=== PATIENT | female | born 1950 | race Caucasian/White ===

== ENCOUNTER → 2017-06-22 | Day surgery (SDC) | payer MEDICARE, OTHER ==
[~2017-06-22] MED LIST: ASPI325T PO; BIOTCAP PO; ESTR1 PO; LACTATED RINGER'S 1000 ML INJ 1,000 ML ONE; LORA1TAB PO; METO50TA PO; MULT-65 PO; ONABOTULINUMTOXINA INJ 100 UNITS/VIAL ONE; PROPOFOL 500 MG/50 ML BTL IV ONE; SODIUM CHLORIDE 0.9% INJ 10 ML ONE; TOVI4TAB PO; VENL75XR PO; ZOLP10TA3 PO
--- NOTE | 2017-06-22 10:47 | GIPROC ---
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 PREP QUALITY: fair PREP TYPE:Other: ESTIMATED BLOOD LOSS: None CONSENT: The patient understands the risks and benefits of the procedure and understands that these risks include, but are not limited to: sedation, allergic reaction, infection, perforation and/or bleeding. Alternative means of evaluation and treatment include, among others: physical exam, x-rays, and/or surgical intervention. The patient elects to proceed with this endoscopic procedure. medical equipment was checked for proper function. Hand hygiene and appropriate measures for infection prevention was taken. After the risks, benefits and alternatives of the procedure were thoroughly explained, Informed consent was verified, confirmed and timeout was successfully executed by the treatment team. A digital exam revealed hemorrhoids The EC-3490Li ([id number]) and EC-3890Li ([id number]) endoscope was introduced through the anus and advanced to the cecum, which was identified by both the appendix and ileocecal valve. The instrument was then slowly withdrawn as the colon was fully examined. COLON FINDINGS: Diverticulosis sigmoid. Retroflexed views revealed internal hemorrhoids and Retroflexed views revealed small internal hemorrhoids The scope was then completely withdrawn from the patient and the procedure terminated. PROCEDURE WITHDRAWAL TIME:6minutes ADVERSE EVENTS: There were no complications. IMPRESSIONS: 1. Diverticulosis sigmoid 2. Retroflexed views revealed internal hemorrhoids 3. Retroflexed views revealed small internal hemorrhoids 4. Revealed hemorrhoids RECOMMENDATIONS: 1. Benefiber 2 tsp daily 2. Probiotics from any [facility] or health food store 3. Yearly rectal exams RECALL: Return 3 years Colonoscopy Fatoumata Cordova MD eSigned: Fatoumata Cordova MD 06/22/2017 10:46 AM cc: Embossograph Operator, [facility] Medel and Blanca Aden M.D.
--- NOTE | 2017-06-22 10:51 | GIPROC ---
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 TOPICAL ANESTHETIC: none CONSENT: The patient understands the risks and benefits of the procedure and understands that these risks include, but are not limited to: sedation, allergic reaction, infection, perforation and/or bleeding. Alternative means of evaluation and treatment include, among others: physical exam, x-rays, and/or surgical intervention. The patient elects to proceed with this endoscopic procedure. medical equipment was checked for proper function. Hand hygiene and appropriate measures for infection prevention was taken. After the risks, benefits and alternatives of the procedure were thoroughly explained, Informed consent was verified, confirmed and timeout was successfully executed by the treatment team. The patient was anesthetized with topical anesthesia and the EC-3490Li ([id number]) endoscope was introduced through the mouth and advanced to the second portion of the duodenum. The instrument was slowly withdrawn as the mucosa was fully examined. Duodenitis second portion-biopsy gastritis antrum-biopsy esophagitis distal esopahgs-biopsy BOTOX injected -100 units-25 units in each quadrant ge junction. Dilation was performed at gastroesophageal junction. DILATOR: SIZE(S): RESISTANCE: HEME: APPEARANCE: Dilator: Savary over guidewire Size(s): 17 COMMENT: Retroflexed views revealed a hiatal hernia ADVERSE EVENTS: There were no complications. IMPRESSIONS: 1. Duodenitis second portion-biopsy gastritis antrum-biopsy esophagitis distal esopahgs-biopsy BOTOX injected -100 units-25 units in each quadrant ge junction 2. Retroflexed views revealed a hiatal hernia RECOMMENDATIONS: 1. Await biopsy results. Biopsy results will not be ready for 7-10 days. If you don't hear from us in two weeks, call our office for biopsy results. 2. Anti-reflux regimen 3. Avoid NSAIDS REPEAT EXAM: EGD pending biopsy results Fatoumata Cordova MD eSigned: Fatoumata Cordova MD 06/22/2017 10:51 AM cc: Griselda Bolaños [facility] Lizy Aden M.D. PATIENT NAME: Nettie Vargas MR#: [id number]
== END | disposition home or self-care (01) ==
LOC: ESDC 07:51
PROVIDERS: ATTEND Internal Medicine Gastroenterology
DX: Z12.11 Encounter for screening for malignant neoplasm of colon (principal); Z80.0 Family history of malignant neoplasm of digestive organs; K21.9 Gastro-esophageal reflux disease without esophagitis; R13.10 Dysphagia, unspecified; K22.4 Dyskinesia of esophagus; K57.90 Diverticulosis of intestine, part unspecified, without perforation or abscess without bleeding; K64.8 Other hemorrhoids; K29.80 Duodenitis without bleeding; K29.70 Gastritis, unspecified, without bleeding; K20.9 Esophagitis, unspecified; K44.9 Diaphragmatic hernia without obstruction or gangrene
CPT/HCPCS: 00740; 00810; 43236; 43239; 45378; 88305; 88312; J0585; J3010; J7120

== ENCOUNTER 2017-07-17 11:30 | Emergency (ER) | payer OTHER, MEDICARE ==
[~2017-07-17 11:30] MED LIST changes: -LACTATED RINGER'S 1000 ML INJ 1,000 ML ONE; -ONABOTULINUMTOXINA INJ 100 UNITS/VIAL ONE; -PROPOFOL 500 MG/50 ML BTL IV ONE; -SODIUM CHLORIDE 0.9% INJ 10 ML ONE
[2017-07-17] MEDS ORDERED: IOHEXOL 350 MG/ML 10 ML VIAL (for RAD DIAG) IVCONTRAST ONE (12:30)
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
[2017-07-17 13:08] LABS: BICARBONATE 26.3 MEQ/L (21.0-32.0); POTASSIUM 3.7 MEQ/L (3.5-5.1)
[2017-07-17 13:10] LABS: AUTOMATED NEUTROPHIL # 3.7 TH/MM3 (1.8-7.7); BASOPHIL % 0.3 % (0.0-2.0); EOSINOPHIL # 0.1 TH/MM3 (0-0.4); EOSINOPHIL % 1.9 % (0.0-4.0); HEMATOCRIT 38.3 % (35.0-46.0); HEMO FLAGS DIFF FINAL; LYMPH % 29.8 % (9.0-44.0); LYMPHOCYTE # 1.8 TH/MM3 (1.0-4.8); MEAN CELL VOLUME 89.9 FL (80.0-100.0); MEAN CORPUSCULAR HEMOGLOBIN 31.1 PG (27.0-34.0); MEAN CORPUSCULAR HGB CONC 34.6 % (32.0-36.0); MONO % 8.9 % (0.0-8.0); NEUT % 59.1 % (16.0-70.0); PLATELET COUNT 244 TH/MM3 (150-450); RED BLOOD COUNT 4.26 MIL/MM3 (4.00-5.30); RED CELL DISTRIBUTION WIDTH 12.9 % (11.6-17.2); WHITE BLOOD COUNT 6.2 TH/MM3 (4.0-11.0)
[2017-07-17] MEDS ORDERED: TOVI8TAB PO (13:16)
[2017-07-17] MEDS ORDERED: ASPI325T PO (13:16)
[2017-07-17] MEDS ORDERED: LORA1TAB12 PO (13:16)
[2017-07-17] MEDS ORDERED: DILT180C36 PO (13:16)
[2017-07-17] MEDS ORDERED: FLEC100T PO (13:16)
[2017-07-17 13:39] LABS: I-STAT POTASSIUM 3.7 MMOL/L (3.5-4.9)
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
[2017-07-17] MEDS ORDERED: NORC5TAB PO (14:05)
[2017-07-17] MEDS ORDERED: CYCL5TAB PO (14:05)
[2017-07-17] MEDS ORDERED: IBUP-232 PO (14:05)
[2017-07-17] MEDS ORDERED: ACETAMINOPHEN/HYDROcodone 325 MG/5 MG TAB PO ONE (14:15)
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
[2017-07-17] MEDS ORDERED: ONDANSETRON HCL 4 MG/2 ML VIAL IV PUSH ONE (15:15)
[2017-07-17] MEDS ORDERED: SODIUM CHLORID 0.9% 500 ML INJ 500 ML IV ONE (15:15)
[2017-07-17] MEDS ORDERED: MORPHINE SULFATE 4 MG/ML INJ IV ONE (15:15)
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
== END 2017-07-17 15:33 | disposition home or self-care (01) ==
LOC: NEPE 11:30
DX: S40.012A Contusion of left shoulder, initial encounter (principal); V43.92XA Unspecified car occupant injured in collision with other type car in traffic accident, initial encounter; Y92.414 Local residential or business street as the place of occurrence of the external cause; R91.1 Solitary pulmonary nodule
CPT/HCPCS: 70450; 71010; 71260; 72125; 72128; 72131; 72170; 73030; 73564; 74177; 76376; 80048; 82435; 82565; 82947; 84132; 84295; 84520; 85025; Q9967; 99285

== ENCOUNTER 2018-10-22 16:53 | Observation (INO) ==
[2018-10-22] MEDS ORDERED: Sod Chloride 0.9% Inj 1,000 ML IV.SIG ONE (17:05)
--- NOTE | 2018-10-22 17:18 | ED ---
HPI General Chief Complaint: Syncope Stated Complaint: Medical Time Seen by Provider: 10/22/18 16:55 Source: patient Mode of arrival: EMS Limitations: no limitations History of Present Illness HPI narrative: 68-year-old female with history of appendectomy, cholecystectomy , cecal volvulus, presents to the emergency room for evaluation of abdominal pain and syncopal episode. Patient reports that she was recently operated on by Dr. 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 Patient reports that she has been doing well and has been having bowel movements daily. Reports that this morning, she was not feeling well, reports that she has been feeling nauseous and has been vomiting. Patient reports that she had to have a bowel movement, she went to the bathroom and had a syncopal episode. Patient reports that she woke up on the floor not sure what happened. Patient reports that she called for her to help her, reports that she ended up vomiting in the sink. Her helped her to her bed as she felt as if she is going to pass out again, reports that she vomited again into a big tub. Reports that now, she is having right lower abdominal pain. Reports that pain feels similar to when she was diagnosed with a cecal volvulus in the past. She is due to follow up with Dr. Carrillo on October 30 for her post op follow up. Related Data Home Medications Medication Instructions Recorded Confirmed diltiazem HCl 180 mg PO DAILY 10/12/18 10/22/18 flecainide 50 mg PO Q12H 10/12/18 10/22/18 venlafaxine [Effexor XR] 75 mg PO DAILY 10/12/18 10/22/18 Previous Rx's Medication Instructions Recorded hydrocodone-acetaminophen 1 tab PO Q4H PRN #18 tab 10/16/18 hydrocodone-acetaminophen 1 tab PO Q4H PRN #18 tab 10/24/18 sulfamethoxazole-trimethoprim 1 tab PO Q12H 7 Days #14 tab 10/24/18 [Bactrim DS] Allergies Allergy/AdvReac Type Severity Reaction Status Date / Time No Known Allergies Allergy Verified 10/12/18 20:04 Review of Systems ROS: all other systems reviewed are negative PMFSH History History Provided By: Patient Social History Social History Substance History: No History of Abuse Second Hand Smoke Exposure: No Smoking Status: Former smoker Tobacco Type: Cigarettes How Often Do You Have a Drink Containing Alcohol: Never Recent Travel in [facility] within the Last 8 Weeks: Yes Recent Out of Country Travel within the Last 8 Weeks: No Exam Narrative Exam Narrative: GENERAL: moderate distress SKIN: Focused skin assessment warm/dry. HEAD: Atraumatic. Normocephalic. EYES: Pupils equal and round. No scleral icterus. No injection or drainage. ENT: No nasal bleeding or discharge. Mucous membranes pink and moist. NECK: Trachea midline. No JVD. CARDIOVASCULAR: Regular rate and rhythm. No murmur appreciated. RESPIRATORY: No accessory muscle use. Clear to auscultation. Breath sounds equal bilaterally. GASTROINTESTINAL: Abdomen soft, mild tenderness to rlq, nondistended. staple are c/d/i - no drainage from incision site- there is mild erythema surrounding incision site. Hepatic and splenic margins not palpable. MUSCULOSKELETAL: No obvious deformities. No clubbing. No cyanosis. No edema. NEUROLOGICAL: Awake and alert. No obvious cranial nerve deficits. Motor grossly within normal limits. Normal speech. PSYCHIATRIC: Appropriate mood and affect; insight and judgment normal. Course Initial Documented Vital Signs Temperature 98.6 F 10/22/18 17:02 Pulse Rate 72 10/22/18 17:02 Respiratory Rate 17 10/22/18 17:02 Blood Pressure 110/61 10/22/18 17:02 Pulse Oximetry 98 10/22/18 17:02 Last Documented Vital Signs Temperature 98.3 F 10/24/18 16:35 Pulse Rate 55 L 10/24/18 16:35 Respiratory Rate 20 10/24/18 16:35 Blood Pressure 126/59 L 10/24/18 16:35 Pulse Oximetry 95 10/24/18 16:35 Sign Out Sign Out Data: Patient Sign Out occurred on 10/22/18 at 20:07. Patient's care was discussed, and care was transferred from Crissy Watts to Hoa Mcbride MD. Sign Out Comment: Patient is a 68 year old female who presents to the ER with c/ o of syncopal episode today with abdominal pain. Patient is s/p abdominal surgery from a cecal volvolus - patient is concerned that she may have another volvolus as she has similar abdominal pain. Patient is pending a ct of her abdomen and pelvis. I do anticipate that patient will be admitted to the hospital. Last updated by Crissy Watts at 10/22/18 19:27 Post-Handoff Eval: The patient's case was checked out to me by Dr. Watts. Please see her initial history and physical. The patient's case was checked out to me at the conclusion of her shift. The patient is pending CT scan of the abdomen and pelvis. The patient presented with history of syncope, nausea vomiting, associated with abdominal pain and status post recent abdominal surgery for a cecal volvulus. During the course of the patient's emergency department visit, the patient was placed on a product craftsman with oximetry and frequent blood pressure monitoring. The patient had IV access obtained and blood work sent for analysis. The patient was initially provided normal saline 1 L IV fluid bolus, Zofran 4 mg IV, morphine 4 mg IV. The patient's diagnostic studies are remarkable for a white count of 11.3 which is decreased from 11.5 on last evaluation on October 15, hemoglobin 14.2, platelets 365 with 79.6 neutrophils, 10 Monocytes, chemistry is remarkable for a GFR of 81, calcium 8.4, alk phos 118, troponin I less than 0.02, albumin 2.8. The patient on evaluation by me has an abdominal for central abdominal tenderness on palpation with a wound with surrounding erythema, warmth, and induration suspicious for an early postoperative cellulitis. The patient was started on IV antibiotic. CT scan of the abdomen and pelvis reveals a small nonorganized fluid collection in the midline anterior abdominal wall at site of recent midline laparotomy without convincing features of abscess at this time. No acute abnormality seen with and within the abdomen or pelvic cavity. Patient is status post recent partial colectomy. The patient's case including history, pertinent physical examination findings, and laboratory studies were discussed with Dr. Mendoza, covering for Dr. Carrillo, and Dr. Meyers, the hospitalist. It was agreed that the patient would be admitted to the hospitalist service. The patient's results were discussed with the patient, including the plan of care. I explained that further testing and/ or monitoring is indicated based on the patient's history, examination, and/ or laboratory findings. Therefore, I recommended admission for additional evaluation. The patient expressed understanding and was agreeable with this plan. The patient was admitted to the hospital in guarded condition and sent to a bed under the care of the [facility] service. Medical Decision Making MDM Narrative Medical decision making narrative: During the course of the patients emergency department visit, the patients history, examination, and differential diagnosis were reviewed with the patient. The patient was placed on a product craftsman with oximetry and frequent blood pressure monitoring. The patient had an IV access obtained and blood work sent for analysis. The patient was initially provided with po and IV contrast. Medical Screen Exam Complete: Yes Emergency Medical Condition: Yes Differential Diagnosis Differential Diagnosis: gastritis, gastroenteritis, sbo, volvulus, arrythmia, acs Medical Records Medical records reviewed: Yes I reviewed the patient's medical records. Lab Data Result diagrams: 10/24/18 05:48 10/24/18 05:48 Lab Results 10/22/18 10/22/18 10/22/18 Range/Units 17:15 17:15 17:15 WBC 11.3 H (4.0-11.0) th/mm3 RBC 4.23 (4.00-5.30) mil/mm3 Hgb 14.2 (11.6-15.3) gm/dL Hct 39.1 (35.0-46.0) % MCV 92.3 (80.0-100.0) fL MCH 33.5 (27.0-34.0) pg MCHC 36.4 H (32.0-36.0) % RDW 13.7 (11.6-17.2) % Plt Count 365 D (150-450) th/mm3 MPV 8.0 (7.0-11.0) fL Prelim Diff (Auto) Slide review pending Neut % (Auto) 79.6 H (16.0-70.0) % Lymph % (Auto) 9.4 (9.0-44.0) % [place] % (Auto) 10.0 H (0.0-8.0) % Eos % (Auto) 0.7 (0.0-4.0) % Baso % (Auto) 0.3 (0.0-2.0) % Neut # (Auto) 9.0 H (1.8-7.7) th/mm3 Lymph # (Auto) 1.1 (1.0-4.8) th/mm3 [place] # (Auto) 1.1 H (0.0-0.9) th/mm3 Eos # (Auto) 0.1 (0.0-0.4) th/mm3 Baso # (Auto) 0.0 (0.0-0.2) th/mm3 WBC Differential . Diff Scan Auto diff confirmed Differential Comment . Platelet Estimate Normal (Normal) Platelet Morphology Normal (Normal) PT 10.2 (9.8-11.6) sec INR 1.0 Ratio APTT 27.0 (23.4-31.7) sec Sodium (136-145) meq/L Potassium (3.5-5.1) meq/L Chloride (98-107) meq/L Carbon Dioxide (21.0-32.0) meq/L Anion Gap (5-15) meq/L BUN (7-18) mg/dL Creatinine (0.50-1.00) mg/dL Estimated GFR (>89) mL/min Random Glucose (74-106) mg/dL Calcium (8.5-10.1) mg/dL Magnesium (1.5-2.5) mg/dL Total Bilirubin (0.2-1.0) mg/dL AST (15-37) U/L ALT (10-53) U/L Alkaline Phosphatase (45-117) U/L Troponin I (0.02-0.05) ng/mL B-Natriuretic Peptide 20 (0-100) pg/mL Total Protein (6.4-8.2) g/dL Albumin (3.4-5.0) g/dL Lipase (73-393) U/L Urine Color (Yellw/Straw) Urine Clarity (Clear) Urine pH (5.0-8.5) Ur Specific [place] (1.002-1.035) Urine Protein (Neg-Trace) mg/dL Urine Glucose (UA) (Negative) mg/dL Urine Ketones (Negative) mg/dL Urine Occult Blood (Negative) Urine Nitrate (Negative) Urine Bilirubin (Negative) Urine Urobilinogen (Less than 2) mg/dL Ur Leukocyte Esterase (Negative) Urine RBC (0-3) /hpf Urine WBC (0-5) /hpf Ur Squamous Epith Cells (0-5) /hpf Ur Transition Epith Cell (None) /hpf Amorphous Sediment (None) /hpf Urine Bacteria (None) /hpf Urine Mucus (Occasional) /lpf Micro UA Comment Ur Microscopic Review Urine Culture Comments 10/22/18 10/22/18 10/22/18 Range/Units 18:50 18:50 21:21 WBC (4.0-11.0) th/mm3 RBC (4.00-5.30) mil/mm3 Hgb (11.6-15.3) gm/dL Hct (35.0-46.0) % MCV (80.0-100.0) fL MCH (27.0-34.0) pg MCHC (32.0-36.0) % RDW (11.6-17.2) % Plt Count (150-450) th/mm3 MPV (7.0-11.0) fL Prelim Diff (Auto) Neut % (Auto) (16.0-70.0) % Lymph % (Auto) (9.0-44.0) % [place] % (Auto) (0.0-8.0) % Eos % (Auto) (0.0-4.0) % Baso % (Auto) (0.0-2.0) % Neut # (Auto) (1.8-7.7) th/mm3 Lymph # (Auto) (1.0-4.8) th/mm3 [place] # (Auto) (0.0-0.9) th/mm3 Eos # (Auto) (0.0-0.4) th/mm3 Baso # (Auto) (0.0-0.2) th/mm3 WBC Differential Diff Scan Differential Comment Platelet Estimate (Normal) Platelet Morphology (Normal) PT (9.8-11.6) sec INR Ratio APTT (23.4-31.7) sec Sodium 140 (136-145) meq/L Potassium 4.1 (3.5-5.1) meq/L Chloride 107 (98-107) meq/L Carbon Dioxide 24.2 (21.0-32.0) meq/L Anion Gap 9 (5-15) meq/L BUN 14 (7-18) mg/dL Creatinine 0.72 (0.50-1.00) mg/dL Estimated GFR 81 L (>89) mL/min Random Glucose 93 (74-106) mg/dL Calcium 8.4 L (8.5-10.1) mg/dL Magnesium 2.1 (1.5-2.5) mg/dL Total Bilirubin 0.3 (0.2-1.0) mg/dL AST 26 (15-37) U/L ALT 39 (10-53) U/L Alkaline Phosphatase 118 H (45-117) U/L Troponin I Less than 0.02 L (0.02-0.05) ng/mL B-Natriuretic Peptide (0-100) pg/mL Total Protein 6.9 (6.4-8.2) g/dL Albumin 2.8 L (3.4-5.0) g/dL Lipase 129 (73-393) U/L Urine Color Yellow (Yellw/Straw) Urine Clarity Cloudy H (Clear) Urine pH 7.0 (5.0-8.5) Ur Specific [place] 1.015 (1.002-1.035) Urine Protein Negative (Neg-Trace) mg/dL Urine Glucose (UA) Negative (Negative) mg/dL Urine Ketones Trace H (Negative) mg/dL Urine Occult Blood Negative (Negative) Urine Nitrate Negative (Negative) Urine Bilirubin Negative (Negative) Urine Urobilinogen Less than 2 (Less than 2) mg/dL Ur Leukocyte Esterase Negative (Negative) Urine RBC 1 (0-3) /hpf Urine WBC 4 (0-5) /hpf Ur Squamous Epith Cells <1 (0-5) /hpf Ur Transition Epith Cell 1 (None) /hpf Amorphous Sediment Occasional H (None) /hpf Urine Bacteria Rare H (None) /hpf Urine Mucus Few H (Occasional) /lpf Micro UA Comment Culture not ind Ur Microscopic Review Not Reportable Urine Culture Comments Culture not ind 10/23/18 10/23/18 10/23/18 Range/Units 01:51 01:51 08:35 WBC 8.0 (4.0-11.0) th/mm3 RBC 3.73 L (4.00-5.30) mil/mm3 Hgb 12.3 (11.6-15.3) gm/dL Hct 34.4 L (35.0-46.0) % MCV 92.1 (80.0-100.0) fL MCH 33.0 (27.0-34.0) pg MCHC 35.9 (32.0-36.0) % RDW 13.3 (11.6-17.2) % Plt Count 278 (150-450) th/mm3 MPV 7.5 (7.0-11.0) fL Prelim Diff (Auto) Neut % (Auto) 67.8 (16.0-70.0) % Lymph % (Auto) 20.1 (9.0-44.0) % [place] % (Auto) 10.4 H (0.0-8.0) % Eos % (Auto) 1.3 (0.0-4.0) % Baso % (Auto) 0.4 (0.0-2.0) % Neut # (Auto) 5.4 (1.8-7.7) th/mm3 Lymph # (Auto) 1.6 (1.0-4.8) th/mm3 [place] # (Auto) 0.8 (0.0-0.9) th/mm3 Eos # (Auto) 0.1 (0.0-0.4) th/mm3 Baso # (Auto) 0.0 (0.0-0.2) th/mm3 WBC Differential . Diff Scan Differential Comment Auto diff final Platelet Estimate (Normal) Platelet Morphology (Normal) PT (9.8-11.6) sec INR Ratio APTT (23.4-31.7) sec Sodium 138 (136-145) meq/L Potassium 3.9 (3.5-5.1) meq/L Chloride 107 (98-107) meq/L Carbon Dioxide 24.8 (21.0-32.0) meq/L Anion Gap 6 (5-15) meq/L BUN 13 (7-18) mg/dL Creatinine 0.68 (0.50-1.00) mg/dL Estimated GFR 86 L (>89) mL/min Random Glucose 91 (74-106) mg/dL Calcium 8.2 L (8.5-10.1) mg/dL Magnesium (1.5-2.5) mg/dL Total Bilirubin 0.4 (0.2-1.0) mg/dL AST 55 H (15-37) U/L ALT 61 H (10-53) U/L Alkaline Phosphatase 161 H (45-117) U/L Troponin I Less than 0.02 L Less than 0.02 L (0.02-0.05) ng/mL B-Natriuretic Peptide (0-100) pg/mL Total Protein 6.5 (6.4-8.2) g/dL Albumin 2.7 L (3.4-5.0) g/dL Lipase (73-393) U/L Urine Color (Yellw/Straw) Urine Clarity (Clear) Urine pH (5.0-8.5) Ur Specific [place] (1.002-1.035) Urine Protein (Neg-Trace) mg/dL Urine Glucose (UA) (Negative) mg/dL Urine Ketones (Negative) mg/dL Urine Occult Blood (Negative) Urine Nitrate (Negative) Urine Bilirubin (Negative) Urine Urobilinogen (Less than 2) mg/dL Ur Leukocyte Esterase (Negative) Urine RBC (0-3) /hpf Urine WBC (0-5) /hpf Ur Squamous Epith Cells (0-5) /hpf Ur Transition Epith Cell (None) /hpf Amorphous Sediment (None) /hpf Urine Bacteria (None) /hpf Urine Mucus (Occasional) /lpf Micro UA Comment Ur Microscopic Review Urine Culture Comments 10/24/18 10/24/18 Range/Units 05:48 05:48 WBC 5.7 (4.0-11.0) th/mm3 RBC 3.62 L (4.00-5.30) mil/mm3 Hgb 11.6 (11.6-15.3) gm/dL Hct 33.7 L (35.0-46.0) % MCV 92.9 (80.0-100.0) fL MCH 32.1 (27.0-34.0) pg MCHC 34.6 (32.0-36.0) % RDW 13.0 (11.6-17.2) % Plt Count 320 (150-450) th/mm3 MPV 7.8 (7.0-11.0) fL Prelim Diff (Auto) Neut % (Auto) 60.1 (16.0-70.0) % Lymph % (Auto) 26.6 (9.0-44.0) % [place] % (Auto) 9.3 H (0.0-8.0) % Eos % (Auto) 3.2 (0.0-4.0) % Baso % (Auto) 0.8 (0.0-2.0) % Neut # (Auto) 3.4 (1.8-7.7) th/mm3 Lymph # (Auto) 1.5 (1.0-4.8) th/mm3 [place] # (Auto) 0.5 (0.0-0.9) th/mm3 Eos # (Auto) 0.2 (0.0-0.4) th/mm3 Baso # (Auto) 0.0 (0.0-0.2) th/mm3 WBC Differential . Diff Scan Differential Comment Auto diff final Platelet Estimate (Normal) Platelet Morphology (Normal) PT (9.8-11.6) sec INR Ratio APTT (23.4-31.7) sec Sodium 141 (136-145) meq/L Potassium 3.8 (3.5-5.1) meq/L Chloride 106 (98-107) meq/L Carbon Dioxide 27.3 (21.0-32.0) meq/L Anion Gap 8 (5-15) meq/L BUN 9 (7-18) mg/dL Creatinine 0.77 (0.50-1.00) mg/dL Estimated GFR 75 L (>89) mL/min Random Glucose 91 (74-106) mg/dL Calcium 8.6 (8.5-10.1) mg/dL Magnesium (1.5-2.5) mg/dL Total Bilirubin 0.4 (0.2-1.0) mg/dL AST 97 H (15-37) U/L ALT 146 H (10-53) U/L Alkaline Phosphatase 210 H (45-117) U/L Troponin I (0.02-0.05) ng/mL B-Natriuretic Peptide (0-100) pg/mL Total Protein 6.4 (6.4-8.2) g/dL Albumin 2.6 L (3.4-5.0) g/dL Lipase (73-393) U/L Urine Color (Yellw/Straw) Urine Clarity (Clear) Urine pH (5.0-8.5) Ur Specific [place] (1.002-1.035) Urine Protein (Neg-Trace) mg/dL Urine Glucose (UA) (Negative) mg/dL Urine Ketones (Negative) mg/dL Urine Occult Blood (Negative) Urine Nitrate (Negative) Urine Bilirubin (Negative) Urine Urobilinogen (Less than 2) mg/dL Ur Leukocyte Esterase (Negative) Urine RBC (0-3) /hpf Urine WBC (0-5) /hpf Ur Squamous Epith Cells (0-5) /hpf Ur Transition Epith Cell (None) /hpf Amorphous Sediment (None) /hpf Urine Bacteria (None) /hpf Urine Mucus (Occasional) /lpf Micro UA Comment Ur Microscopic Review Urine Culture Comments Imaging Data Radiologist's impression: Abdomen/Pelvis CT 10/22/18 17:05 CONCLUSION: 1. Small, nonorganized fluid in the midline anterior abdominal wall at site of recent midline laparotomy without convincing features of abscess at this time. 2. No acute abnormality seen within the abdomen or pelvic cavity. Patient is status post recent right partial colectomy. Head CT 10/22/18 17:05 CONCLUSION: 1. No acute intracranial abnormality demonstrated. 2. Chronic white matter changes. . ECG Data EKG Prior to Arrival: No Attestation: I personally reviewed and interpreted this ECG as follows: Interpretation: EKG at 1733: NSR at 63bpm, qt/qtc: 416/424, no acute st or t wave changes Discharge Plan Discharge Disposition Patient Disposition: 01 Discharge Home Discharge Condition Condition: Stable Discharge Order Discharge Orders: Discharge Order (Routine); Ordered 10/24/18 Ordered By: Yesenia Archer Discharge Details Anticipated Discharge Date: 10/24/18 Diagnosis: Complication, postoperative infection Physicians Team ED Provider: Hoa Mcbride Attending Provider: Mariano Mahmood Other Providers: Pee Carrillo Discharge Interventions Interventions: ED Discharge Assessment Last Done: 10/23/18 00:36 Vital Signs Last Done: 10/22/18 19:56 Status ED Status: Left Department Discharge Information Discharge Date/Time: 10/23/18 00:36
[2018-10-22 17:49] LABS: Prothrombin Time 10.2 sec (9.8-11.6)
[2018-10-22 17:54] LABS: Baso % (Auto) 0.3 % (0.0-2.0); Eos # (Auto) 0.1 th/mm3 (0.0-0.4); Eos % (Auto) 0.7 % (0.0-4.0); Hematocrit 39.1 % (35.0-46.0); Hemoglobin 14.2 gm/dL (11.6-15.3); Lymph # (Auto) 1.1 th/mm3 (1.0-4.8); Lymph % (Auto) 9.4 % (9.0-44.0); Mean Corpuscular Hemoglobin 33.5 pg (27.0-34.0); Mean Corpuscular Volume 92.3 fL (80.0-100.0); Mono # (Auto) 1.1 th/mm3 (0.0-0.9); Neut % (Auto) 79.6 % (16.0-70.0); Platelet Count 365 th/mm3 (150-450); Red Blood Count 4.23 mil/mm3 (4.00-5.30); Red Cell Distribution Width 13.7 % (11.6-17.2); White Blood Count 11.3 th/mm3 (4.0-11.0)
[2018-10-22 17:57] LABS: Mean Corpuscular HGB Conc 36.4 % (32.0-36.0)
[2018-10-22 18:34] LABS: Platelet Estimate Normal (Normal); Platelet Morphology Normal (Normal)
[2018-10-22] MEDS ORDERED: Morphine Inj 4 MG/ML Vial IV.PUSH ONE (18:38)
[2018-10-22] MEDS ORDERED: Diatrizoate Meglum/Diatrizoate Sod Liq 9 ML UDC PO ONE (18:52)
[2018-10-22 19:37] LABS: Albumin 2.8 g/dL (3.4-5.0); Anion Gap 9 meq/L (5-15); Aspartate Aminotransferase 26 U/L (15-37); Blood Urea Nitrogen 14 mg/dL (7-18); Calcium 8.4 mg/dL (8.5-10.1); Carbon Dioxide 24.2 meq/L (21.0-32.0); Chloride 107 meq/L (98-107); Glomerular Filtration Rate 81 mL/min (>89); Glucose,Random 93 mg/dL (74-106); Magnesium 2.1 mg/dL (1.5-2.5); Potassium 4.1 meq/L (3.5-5.1); Sodium 140 meq/L (136-145)
[2018-10-22 19:38] LABS: Alanine Aminotransferase 39 U/L (10-53)
[2018-10-22 19:42] LABS: Alkaline Phosphatase 118 U/L (45-117); Total Protein 6.9 g/dL (6.4-8.2)
--- NOTE | 2018-10-22 21:17 | CT ---
EXAM DATE: 10/22/2018 9:13 PM EST AGE/SEX: 68 years / Female INDICATIONS: Syncopal episode. CLINICAL DATA: This is the patient's initial encounter. Patient reports that signs and symptoms have been present for 1 day and indicates a pain score of 0/10. MEDICAL/SURGICAL HISTORY: Hypertension. Cardiovascular disease. Atrial fibrillation Appendectomy. Cholecystectomy. Colon resection. Spinal fusion RADIATION DOSE: 51.71 CTDI (mGy) COMPARISON: [facility], MR BRAIN W/O CONTRAST, 09/29/2016. [facility], CT BRAIN W/O CONTRAST, 07/17/2017. . TECHNIQUE: CT of the head without contrast. Using automated exposure control and adjustment of the mA and/or kV according to patient size, radiation dose was kept as low as reasonably achievable to ob tain optimal diagnostic quality images. DICOM format image data is available electronically for revi ew and comparison. FINDINGS: Cerebrum: The ventricles are normal for age. No evidence of midline shift, mass lesion, hemorrhage or acute infarction. No extraaxial fluid collections are seen. Chronic low-attenuation seen in the p eriventricular white matter, similar to the prior studies. Posterior Fossa: The cerebellum and brainstem are intact. The 4th ventricle is midline. The cerebe llopontine angle is unremarkable. Extracranial: The visualized portion of the orbits is intact. Skull: The calvaria is intact. No evidence of skull fracture. CONCLUSION: 1. No acute intracranial abnormality demonstrated. 2. Chronic white matter changes. . Electronically signed by: Torey Loza MD 10/22/2018 9:16 PM EST
--- NOTE | 2018-10-22 21:41 | CT ---
EXAM DATE: 10/22/2018 9:25 PM EST AGE/SEX: 68 years / Female INDICATIONS: Redness and swelling at incision site; rule out abscess. CLINICAL DATA: This is the patient's initial encounter. Patient reports that signs and symptoms have been present for 1 day and indicates a pain score of 6/10. MEDICAL/SURGICAL HISTORY: Hypertension. Cardiovascular disease. Appendectomy. Cholecystectomy . Colon resection. Spinal fusion ORAL CONTRAST: Partial prescribed oral contrast ingested. RADIATION DOSE: 8.91 CTDI (mGy) COMPARISON: [facility] [place]/O CONTRAST, 10/13/2018. [facility], CT ABDOMEN & PELVIS W CONT RAST, 07/17/2017. . TECHNIQUE: Multiple contiguous axial images were obtained through the abdomen and pelvis following b olus infusion of 97 ml Omnipaque 350 (iohexol) nonionic water-soluble contrast as a single exam dos e. Partial prescribed oral contrast ingested. Using automated exposure control and adjustment of the mA and/or kV according to patient size, radiation dose was kept as low as reasonably achievable to o btain optimal diagnostic quality images. DICOM format image data is available electronically for rev iew and comparison. FINDINGS: Interim midline laparotomy and partial colonic resection. Nonobstructive bowel gas pattern. No free o r loculated fluid collections are seen within the abdomen or pelvic cavity. No free air. In the anter ior abdominal wall is a minimally organized fluid collection measuring approximately 2.8 x 3.4 cm in greatest transaxial dimension and 12.8 cm craniocaudal. No perceptible wall. No gas bubbles are demon strated. No acute abnormalities are seen of the solid organs. Mild biliary prominence post cholecystectomy is unchanged Trace atelectasis and subcentimeter nodules seen of the lung bases, unchanged. CONCLUSION: 1. Small, nonorganized fluid in the midline anterior abdominal wall at site of recent midline laparo fer without convincing features of abscess at this time. 2. No acute abnormality seen within the abdomen or pelvic cavity. Patient is status post recent righ t partial colectomy. Electronically signed by: Torey Loza MD 10/22/2018 9:39 PM EST
[2018-10-22] MEDS ORDERED: Piperacil/Tazo 3.375 GM Premix 50 ML IV.SIG ONE (21:50)
[2018-10-22 22:13] LABS: Amorphous Sediment,Urine Occasional /hpf; Bacteria,Urine Rare /hpf; Bilirubin,Urine Negative (Negative); Clarity,Urine Cloudy (Clear); Color,Urine Yellow (Yellw/Straw); Glucose,Urine (UA) Negative (Negative); Leukocyte Esterase,Urine Negative (Negative); Mucus,Urine Few /lpf (Occasional); Nitrite,Urine Negative (Negative); Specific Gravity,Urine 1.015 (1.002-1.035); Squamous Epithelial Cell,Urine <1 /hpf (0-5); Transitional Epi Cells,Urine 1 /hpf
[2018-10-22] MEDS ORDERED: Acetaminophen 325 MG Tablet PO PRN (22:26)
[2018-10-22] MEDS ORDERED: Bisacodyl 10 MG Supp RECTAL PRN (22:26)
--- NOTE | 2018-10-22 22:28 | P.HPIM ---
History of Present Illness Primary Care Physician: Carmen Duarte History of Present Illness: This is a 68-year-old female with a PMH of HTN, A. fib and h/o Volvulus s/p Right Colon Resection who was brought to the ER after syncopal event. Pt w/ recent admit 10/13-10/17/18 for c/o abdominal pain, found to have Volvulus and underwent Right Colon Resection on 10/13/18 w/ Dr. Carrillo, states she had been doing well since discharge up until today. Today she noted some redness around surgical site w/ intermittent abdominal cramping, worse after eating, later had syncopal event while on the toilet. Pt states she recalls waking up on the floor of the bathroom. Denies chest pain, dizziness or palpitations prior to event, but did have episode of nausea/vomiting afterwards. On arrival, BP 110/ 61, HR 72, O2 sat 98% on RA, Afebrile. WBC 11.3. INR 1.0. Chemistry essentially unremarkable. Troponin negative. UA negative for UTI. CT Head with no acute findings. CT Abdomen/Pelvis with a small non-organized fluid anterior abdominal wall at site of recent laparotomy, no obvious abscess. Dr. Mendoza consulted by ER physician, findings possibly suggestive of postop seroma. Plan is for admission with possible drainage in the am. - Diagnosis (1) Syncope (2) Afib (3) Cellulitis (4) Seroma after procedure Review of Systems PAST FAMILY HISTORY: Reviewed. No h/o DM or CAD All other systems reviewed negative except as stated in HPI [facility] - History History Provided By: Patient - Medical History Medical History: Medical History (Last Updated 10/22/18 @ 17:15 by Crissy Watts) Bowel obstruction Afib Cecal volvulus Cholecystectomy planned Hypertension - Surgical History Surgical History: Surgical History (Last Reviewed 10/22/18 @ 17:15 by Crissy Watts) History of bowel resection S/P ablation of atrial fibrillation H/O spinal fusion History of appendectomy - Tobacco History Second Hand Smoke Exposure: No Smoking Status: Never smoker - Alcohol History How Often Do You Have a Drink Containing Alcohol: Never - Substance Use History Substance History: No History of Abuse - Travel History Recent Travel in the [place] Within the Last 8 Weeks: Yes Recent Travel Out of the Country Within the Last 8 Weeks: No - Immunization History Tetanus Immunization: <5 Years Medications and Allergies Active Medications: Active Medications Sodium Chloride (Ns Flush) 2 ml IV.FLUSH PRN PRN PRN Reason: FLUSH AFTER USING IV ACCESS Allergies Allergy/AdvReac Type Severity Reaction Status Date / Time No Known Allergies Allergy Verified 10/12/18 20:04 Home Medications Medication Instructions Recorded Confirmed Type diltiazem HCl 180 mg PO DAILY 10/12/18 10/22/18 History flecainide 50 mg PO Q12H 10/12/18 10/22/18 History venlafaxine [Effexor XR] 75 mg PO DAILY 10/12/18 10/22/18 History Exam Vital signs: Vital Signs 10/22/18 17:02 10/22/18 17:19 10/22/18 18:45 Temperature 98.6 F 98.6 F Pulse Rate 72 69 Respiratory Rate 17 20 15 Blood Pressure 110/61 110/61 Pulse Oximetry 98 99 10/22/18 19:56 Temperature Pulse Rate 65 Respiratory Rate 18 Blood Pressure 135/63 Pulse Oximetry 97 Intake & Output 10/22/18 10/22/18 10/23/18 06:59 18:59 06:59 Intake Total 1000 / 1000 Balance 1000 / 1000 Weight 70.307 kg Intake: IV 1000 / 1000 NS Inj 1,000 ML @ Wide Open IV. 1000 / 1000 SIG BOLUS ONE Rx#:[id number] Narrative: PE: GENERAL: Extremely pleasant middle-aged white female in no acute distress. at bedside. SKIN: Focused skin assessment warm and dry. HEENT: PERRLA, EOMI. No scleral icterus or conjunctival pallor. No lid lag or facial droop. CARDIOVASCULAR: Regular rate and rhythm. No obvious murmurs to auscultation. No chest tenderness to palpation. RESPIRATORY: No obvious rhonchi or wheezing. Clear to auscultation. Breath sounds equal bilaterally. GASTROINTESTINAL: Abdomen soft, mildly tender to palpation, +erythema, post-op sutures intact, no obvious drainage. MUSCULOSKELETAL: Extremities without clubbing, cyanosis, or edema. No obvious deformities. NEUROLOGICAL: Awake, alert and oriented x4. No focal neurologic deficits. Moving both upper and lower extremities spontaneously. PSYCHIATRIC: Appropriate mood and affect. Insight and judgment normal. Results - Labs CBC & Chem 7: 10/22/18 17:15 10/22/18 18:50 Labs: Short CBC 10/22/18 Range/Units 17:15 WBC 11.3 H (4.0-11.0) th/mm3 Hgb 14.2 (11.6-15.3) gm/dL Hct 39.1 (35.0-46.0) % Plt Count 365 D (150-450) th/mm3 BMP 10/22/18 18:50 Sodium 140 Potassium 4.1 Chloride 107 Carbon Dioxide 24.2 BUN 14 Creatinine 0.72 Calcium 8.4 L Cardiac Enzymes 10/22/18 Range/Units 18:50 Troponin I Less than 0.02 L (0.02-0.05) ng/mL Liver Function 10/22/18 Range/Units 18:50 Total Bilirubin 0.3 (0.2-1.0) mg/dL AST 26 (15-37) U/L ALT 39 (10-53) U/L Alkaline Phosphatase 118 H (45-117) U/L Albumin 2.8 L (3.4-5.0) g/dL Urine 10/22/18 Range/Units 21:21 Urine Color Yellow (Yellw/Straw) Urine Clarity Cloudy H (Clear) Urine pH 7.0 (5.0-8.5) Ur Specific [place] 1.015 (1.002-1.035) Urine Protein Negative (Neg-Trace) mg/dL Urine Glucose (UA) Negative (Negative) mg/dL - Imaging Impressions Abdomen/Pelvis CT 10/22/18 17:05 CONCLUSION: 1. Small, nonorganized fluid in the midline anterior abdominal wall at site of recent midline laparotomy without convincing features of abscess at this time. 2. No acute abnormality seen within the abdomen or pelvic cavity. Patient is status post recent right partial colectomy. Head CT 10/22/18 17:05 CONCLUSION: 1. No acute intracranial abnormality demonstrated. 2. Chronic white matter changes. . Caprini VTE Risk Assessment Caprini VTE Risk Assessment: No/Low Risk (score <= 1) Caprini Risk Assessment Model: Point Value = 1 Point Value = 2 Point Value = 3 Point Value = 5 Age 41-60 Minor surgery BMI > 25 kg/m2 Swollen legs Varicose veins or History of unexplained or recurrent spontaneous Oral contraceptives or hormone replacement Sepsis (< 1 month) Serious lung disease, including pneumonia (< 1 month) Abnormal pulmonary function Acute myocardial infarction Congestive heart failure (< 1 month) History of inflammatory bowel disease Medical patient at bed rest Age 61-74 Arthroscopic surgery Major open surgery (> 45 min) Laparoscopic surgery (> 45 min) Malignancy Confined to bed (> 72 hours) Immobilizing plaster cast Central venous access Age >= 75 History of VTE Family history of VTE Factor V Leiden Prothrombin [id number] Lupus anticoagulant Anticardiolipin antibodies Elevated serum homocysteine Heparin-induced thrombocytopenia Other congenital or acquired thrombophilia Stroke (< 1 month) Elective arthroplasty Hip, pelvis, or leg fracture Acute spinal cord injury (< 1 month) Prophylaxis Regimen: Total Risk Factor Score Risk Level Prophylaxis Regimen 0-1 Low Early ambulation 2 Moderate Order ONE of the following: *Sequential Compression Device (SCD) *Heparin 5000 units SQ BID 3-4 Higher Order ONE of the following medications: *Heparin 5000 units SQ TID *Enoxaparin/Lovenox 40 mg SQ daily (WT < 150 kg, CrCl > 30 mL/min) *Enoxaparin/Lovenox 30 mg SQ daily (WT < 150 kg, CrCl > 10-29 mL/min) *Enoxaparin/Lovenox 30 mg SQ BID (WT < 150 kg, CrCl > 30 mL/min) AND/OR *Sequential Compression Device (SCD) 5 or more Highest Order ONE of the following medications: *Heparin 5000 units SQ TID (Preferred with Epidurals) *Enoxaparin/Lovenox 40 mg SQ daily (WT < 150 kg, CrCl > 30 mL/min) *Enoxaparin/Lovenox 30 mg SQ daily (WT < 150 kg, CrCl > 10-29 mL/min) *Enoxaparin/Lovenox 30 mg SQ BID (WT < 150 kg, CrCl > 30 mL/min) AND *Sequential Compression Device (SCD) Assessment and Plan - Assessment (1) Syncope Code(s): R55 - Syncope and collapse Status: Acute (2) Afib Code(s): I48.91 - Unspecified atrial fibrillation Status: Acute (3) Cellulitis Code(s): L03.90 - Cellulitis, unspecified Status: Acute (4) Seroma after procedure Status: Acute - Plan A/P: 1. Syncope: likely vasovagal while straining on toilet, no chest pain or dizziness reported. CT Head w/ no acute findings. Initial trop negative, will admit to Observation for further eval, telemetry, check serial cardiac enzymes to eval for possible ischemia, check Echo to eval for valvular abnormality/ cardiomyopathy. 2. A-fib: Chronic, controlled. Resume home Cardizem and Flecainide. 3. Cellulitis: Abdominal wall cellulitis, afebrile, mild leukocytosis, s/p Zosyn in ER, will continue w/ IV Abx. 4. Post-Op Seroma: h/o Volvulus s/p Right Colon Resection 10/13/[address] Carrillo, CT Abd/Pelvis w/ fluid collection at surgical site, no clear abscess identified, Dr. Mendoza consulted by ER physician, findings possibly related to seroma, will eval in am w/ possible bedside drainage. NPO after midnight. Morphine prn. 5. DVT Prophylaxis: SCD/Teds 6. Social work for d/c planning as needed. 7. Case discussed w/ ER physician at length, labs/records/imaging reviewed by me
[2018-10-22] MEDS: Morphine Sulfate Inj 2 MG/ML Vial IV.PUSH PRN (22:56)
[2018-10-22] MEDS: Sod Chloride 0.9% Inj 1,000 ML IV.CONT SCH (22:57)
[2018-10-22] MEDS: Flecainide 100 MG Tablet PO SCH (23:39)
[2018-10-23 02:12] LABS: Baso % (Auto) 0.4 % (0.0-2.0); Eos # (Auto) 0.1 th/mm3 (0.0-0.4); Eos % (Auto) 1.3 % (0.0-4.0); Hematocrit 34.4 % (35.0-46.0); Hemoglobin 12.3 gm/dL (11.6-15.3); Lymph # (Auto) 1.6 th/mm3 (1.0-4.8); Lymph % (Auto) 20.1 % (9.0-44.0); Mean Corpuscular HGB Conc 35.9 % (32.0-36.0); Mean Corpuscular Volume 92.1 fL (80.0-100.0); Mean Platelet Volume 7.5 fL (7.0-11.0); Mono # (Auto) 0.8 th/mm3 (0.0-0.9); Mono % (Auto) 10.4 % (0.0-8.0); Neut # (Auto) 5.4 th/mm3 (1.8-7.7); Neut % (Auto) 67.8 % (16.0-70.0); Platelet Count 278 th/mm3 (150-450); Red Blood Count 3.73 mil/mm3 (4.00-5.30); Red Cell Distribution Width 13.3 % (11.6-17.2)
[2018-10-23 02:23] LABS: Alanine Aminotransferase 61 U/L (10-53); Albumin 2.7 g/dL (3.4-5.0); Alkaline Phosphatase 161 U/L (45-117); Anion Gap 6 meq/L (5-15); Aspartate Aminotransferase 55 U/L (15-37); Blood Urea Nitrogen 13 mg/dL (7-18); Calcium 8.2 mg/dL (8.5-10.1); Carbon Dioxide 24.8 meq/L (21.0-32.0); Chloride 107 meq/L (98-107); Glomerular Filtration Rate 86 mL/min (>89); Glucose,Random 91 mg/dL (74-106); Potassium 3.9 meq/L (3.5-5.1); Sodium 138 meq/L (136-145); Total Protein 6.5 g/dL (6.4-8.2)
[2018-10-23] MEDS: Morphine Sulfate Inj 2 MG/ML Vial IV.PUSH PRN ×5 (03:15→22:02)
[2018-10-23] MEDS: Piperacil/Tazo 4.5 GM Premix 4.5 GM/100 ML BAG IV.SIG SCH ×4 (04:33→21:59)
--- NOTE | 2018-10-23 08:38 | P.PN ---
Subjective Interval history: Follow-up for abdominal pain/nausea/vomiting s/p colon resection, syncopal episode. The patient reports continued diffuse abdominal pain around surgical site with surrounding erythema. Denies fevers but does report some occasional chills. Denies any nausea/vomiting since prior to arrival. Denies any lightheadedness or dizziness. She states she has ambulated to the bathroom without difficulty. Denies any chest pain or shortness of breath. Denies any other medical complaints at this time. Physical Exam Vital signs: Vital Signs 10/22/18 17:02 10/22/18 17:19 10/22/18 18:45 Temperature 98.6 F 98.6 F Pulse Rate 72 69 Respiratory Rate 17 20 15 Blood Pressure 110/61 110/61 Pulse Oximetry 98 99 10/22/18 19:56 10/22/18 22:58 10/23/18 00:06 Temperature Pulse Rate 65 60 Respiratory Rate 18 15 16 Blood Pressure 135/63 113/55 L Pulse Oximetry 97 98 10/23/18 00:47 10/23/18 01:35 10/23/18 03:53 Temperature 98.0 F 98.0 F Pulse Rate 59 L 58 L 60 Respiratory Rate 16 17 Blood Pressure 111/60 115/55 L Pulse Oximetry 96 95 10/23/18 04:40 10/23/18 07:53 10/23/18 08:17 Temperature 98.3 F Pulse Rate 55 L 58 L Respiratory Rate 18 16 Blood Pressure 121/62 Pulse Oximetry 95 Intake & Output 10/22/18 10/23/18 10/23/18 18:59 06:59 18:59 Intake Total 1000 / 1000 150 / 150 Balance 1000 / 1000 150 / 150 Weight 70.307 kg 70.3 kg 70.3 kg Intake: IV 1000 / 1000 150 / 150 Zosyn 3.375 GM Premix 50 ML @ 50 / 50 100 mls/hr IV.SIG ONCE ONE Rx#: [id number] Zosyn 4.5 GM Premix 4.5 gm In 100 / 100 100 ml @ 200 mls/hr IV.SIG Q6H GOGO Rx#:[id number] NS Inj 1,000 ML @ Wide Open IV. 1000 / 1000 SIG BOLUS ONE Rx#:[id number] Other: # Voids 1 Date of Last Bowel Movement 10/23/18 Weight On Admission 70.3 kg Narrative: GENERAL: Well-nourished, well-developed pleasant female patient in NAD. SKIN: Warm and dry. No rash. HEENT: Normocephalic. Atraumatic. Pupils equal and round. Mucous membranes pink and moist. CARDIOVASCULAR: Regular rate and rhythm. No murmur appreciated. RESPIRATORY: No accessory muscle use. Clear to auscultation. Breath sounds equal bilaterally. GASTROINTESTINAL: Abdomen soft, nondistended. Midline abdominal surgical site with ghislaine and surrounding erythema, tender to palpation. Normoactive bowel sounds x4. MUSCULOSKELETAL: No obvious deformities. Extremities without clubbing, cyanosis , or edema. NEUROLOGICAL: Awake and alert. No obvious cranial nerve deficits. Motor grossly within normal limits. Moving all extremities spontaneously. Normal speech. PSYCHIATRIC: Appropriate mood and affect; insight and judgment normal. Results - Labs CBC & Chem 7: 10/23/18 01:51 10/23/18 01:51 Laboratory Results - last 24 hr 10/22/18 10/22/18 10/22/18 17:15 17:15 17:15 WBC 11.3 H RBC 4.23 Hgb 14.2 Hct 39.1 MCV 92.3 MCH 33.5 MCHC 36.4 H RDW 13.7 Plt Count 365 D MPV 8.0 Prelim Diff (Auto) Slide review pending Neut % (Auto) 79.6 H Lymph % (Auto) 9.4 [place] % (Auto) 10.0 H Eos % (Auto) 0.7 Baso % (Auto) 0.3 Neut # (Auto) 9.0 H Lymph # (Auto) 1.1 [place] # (Auto) 1.1 H Eos # (Auto) 0.1 Baso # (Auto) 0.0 WBC Differential . Diff Scan Auto diff confirmed Differential Comment . Platelet Estimate Normal Platelet Morphology Normal PT 10.2 INR 1.0 APTT 27.0 Sodium Potassium Chloride Carbon Dioxide Anion Gap BUN Creatinine Estimated GFR Random Glucose Calcium Magnesium Total Bilirubin AST ALT Alkaline Phosphatase Troponin I B-Natriuretic Peptide 20 Total Protein Albumin Lipase Urine Color Urine Clarity Urine pH Ur Specific [place] Urine Protein Urine Glucose (UA) Urine Ketones Urine Occult Blood Urine Nitrate Urine Bilirubin Urine Urobilinogen Ur Leukocyte Esterase Urine RBC Urine WBC Ur Squamous Epith Cells Ur Transition Epith Cell Amorphous Sediment Urine Bacteria Urine Mucus Micro UA Comment Ur Microscopic Review Urine Culture Comments 11/25/18 11/25/18 11/25/18 18:50 18:50 21:21 WBC RBC Hgb Hct MCV MCH MCHC RDW Plt Count MPV Prelim Diff (Auto) Neut % (Auto) Lymph % (Auto) [place] % (Auto) Eos % (Auto) Baso % (Auto) Neut # (Auto) Lymph # (Auto) [place] # (Auto) Eos # (Auto) Baso # (Auto) WBC Differential Diff Scan Differential Comment Platelet Estimate Platelet Morphology PT INR APTT Sodium 140 Potassium 4.1 Chloride 107 Carbon Dioxide 24.2 Anion Gap 9 BUN 14 Creatinine 0.72 Estimated GFR 81 L Random Glucose 93 Calcium 8.4 L Magnesium 2.1 Total Bilirubin 0.3 AST 26 ALT 39 Alkaline Phosphatase 118 H Troponin I Less than 0.02 L B-Natriuretic Peptide Total Protein 6.9 Albumin 2.8 L Lipase 129 Urine Color Yellow Urine Clarity Cloudy H Urine pH 7.0 Ur Specific [place] 1.015 Urine Protein Negative Urine Glucose (UA) Negative Urine Ketones Trace H Urine Occult Blood Negative Urine Nitrate Negative Urine Bilirubin Negative Urine Urobilinogen Less than 2 Ur Leukocyte Esterase Negative Urine RBC 1 Urine WBC 4 Ur Squamous Epith Cells <1 Ur Transition Epith Cell 1 Amorphous Sediment Occasional H Urine Bacteria Rare H Urine Mucus Few H Micro UA Comment Culture not ind Ur Microscopic Review Not Reportable Urine Culture Comments Culture not ind 10/23/18 10/23/18 01:51 01:51 WBC 8.0 RBC 3.73 L Hgb 12.3 Hct 34.4 L MCV 92.1 MCH 33.0 MCHC 35.9 RDW 13.3 Plt Count 278 MPV 7.5 Prelim Diff (Auto) Neut % (Auto) 67.8 Lymph % (Auto) 20.1 [place] % (Auto) 10.4 H Eos % (Auto) 1.3 Baso % (Auto) 0.4 Neut # (Auto) 5.4 Lymph # (Auto) 1.6 [place] # (Auto) 0.8 Eos # (Auto) 0.1 Baso # (Auto) 0.0 WBC Differential . Diff Scan Differential Comment Auto diff final Platelet Estimate Platelet Morphology PT INR APTT Sodium 138 Potassium 3.9 Chloride 107 Carbon Dioxide 24.8 Anion Gap 6 BUN 13 Creatinine 0.68 Estimated GFR 86 L Random Glucose 91 Calcium 8.2 L Magnesium Total Bilirubin 0.4 AST 55 H ALT 61 H Alkaline Phosphatase 161 H Troponin I Less than 0.02 L B-Natriuretic Peptide Total Protein 6.5 Albumin 2.7 L Lipase Urine Color Urine Clarity Urine pH Ur Specific [place] Urine Protein Urine Glucose (UA) Urine Ketones Urine Occult Blood Urine Nitrate Urine Bilirubin Urine Urobilinogen Ur Leukocyte Esterase Urine RBC Urine WBC Ur Squamous Epith Cells Ur Transition Epith Cell Amorphous Sediment Urine Bacteria Urine Mucus Micro UA Comment Ur Microscopic Review Urine Culture Comments - Imaging Impressions Abdomen/Pelvis CT 10/22/18 17:05 CONCLUSION: 1. Small, nonorganized fluid in the midline anterior abdominal wall at site of recent midline laparotomy without convincing features of abscess at this time. 2. No acute abnormality seen within the abdomen or pelvic cavity. Patient is status post recent right partial colectomy. Head CT 10/22/18 17:05 CONCLUSION: 1. No acute intracranial abnormality demonstrated. 2. Chronic white matter changes. . Assessment and Plan - Assessment (1) Syncope Code(s): R55 - Syncope and collapse Status: Acute (2) Afib Code(s): I48.91 - Unspecified atrial fibrillation Status: Acute (3) Cellulitis Code(s): L03.90 - Cellulitis, unspecified Status: Acute (4) Seroma after procedure Status: Acute - Plan 68-year-old female with a PMH of HTN, A. fib and h/o Volvulus s/p Right Colon Resection who was brought to the ER after syncopal event. Syncope: likely vasovagal while straining on toilet, no chest pain or dizziness reported. -CT Head w/ no acute findings. -Troponins negative x2, EKG without acute ischemic changes -Monitor on telemetry -check Echo to eval for valvular abnormality/cardiomyopathy. -Give IVF hydration -Symptoms improved Post-Op Seroma: h/o Volvulus s/p Right Colon Resection 10/13/[address] Carrillo -CT Abd/Pelvis w/ fluid collection at surgical site, no clear abscess identified -Dr. Mendoza consulted by ER physician, findings possibly related to seroma, possible bedside drainage today. -NPO after midnight. -IV Morphine prn. Cellulitis: Abdominal wall cellulitis, afebrile, mild leukocytosis -s/p Zosyn in ER, will continue w/ IV Abx. A-fib: Chronic, controlled. -Resume home Cardizem and Flecainide. -Monitor on telemetry DVT Prophylaxis: SCD/Teds. Hold chemical prophylaxis with likely upcoming procedure.
[2018-10-23] MEDS: Senna/Docusate Sodium 8.6/50 MG Tablet PO SCH ×2 (08:55→22:03)
[2018-10-23] MEDS: dilTIAZem CD 180 MG Capsule PO SCH (08:56)
[2018-10-23] MEDS: Sod Chloride 0.9% Inj 1,000 ML IV.CONT SCH ×3 (08:56→21:59)
[2018-10-23] MEDS ORDERED: Vancomycin Inj 1,000 MG in Sodium Chlor 0.9% Inj 250 ML IV.SIG ONE (10:00)
[2018-10-23] MEDS: Flecainide 100 MG Tablet PO SCH ×2 (10:35→22:00)
--- NOTE | 2018-10-23 17:56 | P.CONGS ---
[facility] Gen Surgery Consult Note Consult date: 10/22/18 Reason for consult: other (post op cellulitis) Requesting physician: Annabella Meyers Narrative: CONSULTATION NOTE FOR SURGICAL ATTENDING, DR. PEE CARRILLO This is a 68 year old female with a past medical history of hypertension, atrial fibrillation and colon resection for cecal volvulus about 10 days ago. The patient was discharged from the hospital last week and was scheduled to come see Dr. Carrillo the first week of October The patient was doing well at home until Tuesday, she noticed pink around her incision without any drainage. On Tuesday, the redness increased. She had a syncopal episode at home. She reports increased pain at her incision. The patient was brought to the ED. A CT abdomen/pelvis was obtained which show a small, non-organized fluid in the midline anterior abdominal wall. Her WBC is elevated. A General Surgery consultation has been requested. Review of Systems All other systems reviewed negative except as stated in [facility] PMFSH - History History Provided By: Patient - Medical History Medical History: Medical History (Last Reviewed 10/24/18 @ 18:48 by Pee Carrillo MD) Afib Bowel obstruction Cecal volvulus Cholecystectomy planned Hypertension - Surgical History Surgical History: Surgical History (Last Reviewed 10/24/18 @ 18:48 by Pee Carrillo MD) H/O exploratory laparotomy H/O spinal fusion History of appendectomy History of bowel resection S/P ablation of atrial fibrillation - Social History I have reviewed the patient's Social History: Yes - Tobacco History Second Hand Smoke Exposure: No Smoking Status: Former smoker Tobacco Type: Cigarettes - Alcohol History How Often Do You Have a Drink Containing Alcohol: Never - Substance Use History Substance History: No History of Abuse - Travel History Recent Travel in the [place] Within the Last 8 Weeks: Yes Recent Travel Out of the Country Within the Last 8 Weeks: No - Immunization History Tetanus Immunization: <5 Years Medications and Allergies Allergies Allergy/AdvReac Type Severity Reaction Status Date / Time No Known Allergies Allergy Verified 10/12/18 20:04 Home Medications Medication Instructions Recorded Confirmed Type diltiazem HCl 180 mg PO DAILY 10/12/18 10/22/18 History flecainide 50 mg PO Q12H 10/12/18 10/22/18 History venlafaxine [Effexor XR] 75 mg PO DAILY 10/12/18 10/22/18 History Active Medications: Active Medications Acetaminophen (Tylenol) 650 mg PO Q4H PRN PRN Reason: Temp > 100.4 Al Hydroxide/Mg Hydroxide (Milk Of Magnesia Liq) 30 ml PO Q12H PRN PRN Reason: Mild Constipation Bisacodyl (Dulcolax Supp) 10 mg RECTAL DAILY PRN PRN Reason: SEVERE CONSITIPATION Diltiazem HCl (Cardizem Cd 24hr) 180 mg PO DAILY [facility] Last Admin: 10/23/18 08:56 Dose: 180 mg Flecainide Acetate (Tambocor) 50 mg PO Q12H [facility] Last Admin: 10/23/18 10:35 Dose: 50 mg Sodium Chloride (Ns Inj) 1,000 mls @ 100 mls/hr IV.CONT .Q10H [facility] Last Admin: 10/23/18 08:56 Dose: 100 mls/hr Piperacillin/Tazobactam/Dextrose (Zosyn 4.5 Gm Premix) 4.5 gm in 100 mls @ 200 mls/hr IV.SIG Q6H [facility] Last Infusion: 10/23/18 16:33 Dose: Infused Lactulose (Lactulose Liq) 30 ml PO DAILY PRN PRN Reason: SEVERE CONSITIPATION Morphine Sulfate (Morphine Inj) 2 mg IV.PUSH Q4H PRN PRN Reason: PAIN 6-10 Last Admin: 10/23/18 17:32 Dose: 2 mg Ondansetron HCl (Zofran Inj) 4 mg IV.PUSH Q6H PRN PRN Reason: NAUSEA OR VOMITING Senna/Docusate Sodium (Valeria-Colace) 1 tab PO BID [facility] Last Admin: 10/23/18 08:55 Dose: Not Given Sennosides (Senokot) 17.2 mg PO Q12H PRN PRN Reason: Moderate Constipation Sodium Chloride (Ns Flush) 2 ml IV.FLUSH PRN PRN PRN Reason: FLUSH AFTER USING IV ACCESS Exam Vital signs: Vital Signs 10/22/18 18:45 10/22/18 19:56 10/22/18 22:58 Temperature Pulse Rate 65 Respiratory Rate 15 18 15 Blood Pressure 135/63 Pulse Oximetry 97 10/23/18 00:06 10/23/18 00:47 10/23/18 01:35 Temperature 98.0 F Pulse Rate 60 59 L 58 L Respiratory Rate 16 16 Blood Pressure 113/55 L 111/60 Pulse Oximetry 98 96 10/23/18 03:53 10/23/18 04:40 10/23/18 07:53 Temperature 98.0 F Pulse Rate 60 55 L Respiratory Rate 17 18 Blood Pressure 115/55 L Pulse Oximetry 95 10/23/18 08:00 10/23/18 08:17 10/23/18 09:00 Temperature 98.3 F Pulse Rate 60 58 L 56 L Respiratory Rate 16 Blood Pressure 121/62 Pulse Oximetry 95 10/23/18 12:19 10/23/18 12:57 10/23/18 15:53 Temperature 98.0 F 97.9 F Pulse Rate 58 L 64 Respiratory Rate 18 16 16 Blood Pressure 106/52 L 108/57 L Pulse Oximetry 94 L 95 Intake & Output 10/22/18 10/23/18 10/23/18 18:59 06:59 18:59 Intake Total 1000 / 1000 150 / 150 1450 / 1450 Balance 1000 / 1000 150 / 150 1450 / 1450 Weight 70.307 kg 70.3 kg 70.3 kg Intake: IV 1000 / 1000 150 / 150 1450 / 1450 NS Inj 1,000 ML @ 100 mls/hr IV 1000 / 1000 .CONT .Q10H [facility] Rx#:[id number] Zosyn 3.375 GM Premix 50 ML @ 50 / 50 100 mls/hr IV.SIG ONCE ONE Rx#: [id number] Zosyn 4.5 GM Premix 4.5 gm In 100 / 100 200 / 200 100 ml @ 200 mls/hr IV.SIG Q6H [facility] Rx#:[id number] NS Inj 1,000 ML @ Wide Open IV. 1000 / 1000 SIG BOLUS ONE Rx#:[id number] Vancomycin Inj 1,000 MG In NS 250 / 250 Inj 250 ML @ 250 mls/hr IV.SIG ONCE ONE Rx#:[id number] Other: # Voids 1 Date of Last Bowel Movement 10/23/18 10/23/18 Weight On Admission 70.3 kg Narrative: GENERAL: 68 year old female resting in bed in no acute distress. SKIN: Warm and dry. BUE ecchymosis noted. HEAD: Atraumatic. Normocephalic. EYES: Pupils equal and round. No scleral icterus. No injection or drainage. ENT: No nasal bleeding or discharge. Mucous membranes pink and moist. NECK: Trachea midline. CARDIOVASCULAR: Regular rate and rhythm. RESPIRATORY: No accessory muscle use. Clear to auscultation. Breath sounds equal bilaterally. GASTROINTESTINAL: Abdomen soft, nondistended. Midline incision with nahid; erythema. Small palpable fluid collection at inferior portion of incision. MUSCULOSKELETAL: Extremities without clubbing, cyanosis, or edema. No obvious deformities. NEUROLOGICAL: Awake and alert. No obvious cranial nerve deficits. Motor grossly within normal limits. Five out of 5 muscle strength in the arms and legs. Normal speech. PSYCHIATRIC: Appropriate mood and affect; insight and judgment normal. . Results - Labs 10/24/18 05:48 10/24/18 05:48 Laboratory Results - last 24 hr 10/22/18 10/22/18 10/22/18 17:15 17:15 18:50 WBC 11.3 H RBC 4.23 Hgb 14.2 Hct 39.1 MCV 92.3 MCH 33.5 MCHC 36.4 H RDW 13.7 Plt Count 365 D MPV 8.0 Prelim Diff (Auto) Slide review pending Neut % (Auto) 79.6 H Lymph % (Auto) 9.4 [place] % (Auto) 10.0 H Eos % (Auto) 0.7 Baso % (Auto) 0.3 Neut # (Auto) 9.0 H Lymph # (Auto) 1.1 [place] # (Auto) 1.1 H Eos # (Auto) 0.1 Baso # (Auto) 0.0 WBC Differential . Diff Scan Auto diff confirmed Differential Comment . Platelet Estimate Normal Platelet Morphology Normal Sodium 140 Potassium 4.1 Chloride 107 Carbon Dioxide 24.2 Anion Gap 9 BUN 14 Creatinine 0.72 Estimated GFR 81 L Random Glucose 93 Calcium 8.4 L Magnesium 2.1 Total Bilirubin 0.3 AST 26 ALT 39 Alkaline Phosphatase 118 H Troponin I Less than 0.02 L B-Natriuretic Peptide 20 Total Protein 6.9 Albumin 2.8 L Lipase Urine Color Urine Clarity Urine pH Ur Specific [place] Urine Protein Urine Glucose (UA) Urine Ketones Urine Occult Blood Urine Nitrate Urine Bilirubin Urine Urobilinogen Ur Leukocyte Esterase Urine RBC Urine WBC Ur Squamous Epith Cells Ur Transition Epith Cell Amorphous Sediment Urine Bacteria Urine Mucus Micro UA Comment Ur Microscopic Review Urine Culture Comments 10/22/18 10/22/18 10/23/18 18:50 21:21 01:51 WBC 8.0 RBC 3.73 L Hgb 12.3 Hct 34.4 L MCV 92.1 MCH 33.0 MCHC 35.9 RDW 13.3 Plt Count 278 MPV 7.5 Prelim Diff (Auto) Neut % (Auto) 67.8 Lymph % (Auto) 20.1 [place] % (Auto) 10.4 H Eos % (Auto) 1.3 Baso % (Auto) 0.4 Neut # (Auto) 5.4 Lymph # (Auto) 1.6 [place] # (Auto) 0.8 Eos # (Auto) 0.1 Baso # (Auto) 0.0 WBC Differential . Diff Scan Differential Comment Auto diff final Platelet Estimate Platelet Morphology Sodium Potassium Chloride Carbon Dioxide Anion Gap BUN Creatinine Estimated GFR Random Glucose Calcium Magnesium Total Bilirubin AST ALT Alkaline Phosphatase Troponin I B-Natriuretic Peptide Total Protein Albumin Lipase 129 Urine Color Yellow Urine Clarity Cloudy H Urine pH 7.0 Ur Specific [place] 1.015 Urine Protein Negative Urine Glucose (UA) Negative Urine Ketones Trace H Urine Occult Blood Negative Urine Nitrate Negative Urine Bilirubin Negative Urine Urobilinogen Less than 2 Ur Leukocyte Esterase Negative Urine RBC 1 Urine WBC 4 Ur Squamous Epith Cells <1 Ur Transition Epith Cell 1 Amorphous Sediment Occasional H Urine Bacteria Rare H Urine Mucus Few H Micro UA Comment Culture not ind Ur Microscopic Review Not Reportable Urine Culture Comments Culture not ind 10/23/18 10/23/18 01:51 08:35 WBC RBC Hgb Hct MCV MCH MCHC RDW Plt Count MPV Prelim Diff (Auto) Neut % (Auto) Lymph % (Auto) [place] % (Auto) Eos % (Auto) Baso % (Auto) Neut # (Auto) Lymph # (Auto) [place] # (Auto) Eos # (Auto) Baso # (Auto) WBC Differential Diff Scan Differential Comment Platelet Estimate Platelet Morphology Sodium 138 Potassium 3.9 Chloride 107 Carbon Dioxide 24.8 Anion Gap 6 BUN 13 Creatinine 0.68 Estimated GFR 86 L Random Glucose 91 Calcium 8.2 L Magnesium Total Bilirubin 0.4 AST 55 H ALT 61 H Alkaline Phosphatase 161 H Troponin I Less than 0.02 L Less than 0.02 L B-Natriuretic Peptide Total Protein 6.5 Albumin 2.7 L Lipase Urine Color Urine Clarity Urine pH Ur Specific [place] Urine Protein Urine Glucose (UA) Urine Ketones Urine Occult Blood Urine Nitrate Urine Bilirubin Urine Urobilinogen Ur Leukocyte Esterase Urine RBC Urine WBC Ur Squamous Epith Cells Ur Transition Epith Cell Amorphous Sediment Urine Bacteria Urine Mucus Micro UA Comment Ur Microscopic Review Urine Culture Comments - Imaging Imaging: ITS Impressions Abdomen/Pelvis CT 10/22/18 17:05 CONCLUSION: 1. Small, nonorganized fluid in the midline anterior abdominal wall at site of recent midline laparotomy without convincing features of abscess at this time. 2. No acute abnormality seen within the abdomen or pelvic cavity. Patient is status post recent right partial colectomy. Head CT 10/22/18 17:05 CONCLUSION: 1. No acute intracranial abnormality demonstrated. 2. Chronic white matter changes. . CT scan - abdomen: image reviewed Assessment and Plan - Assessment (1) Cellulitis Code(s): L03.90 - Cellulitis, unspecified Status: Acute Plan: 68 year old female s/p right colon resection about 10 days ago; back with cellulitis and subcutaneous abscess -Several nahid removed and drained purulent drainage--- see separate procedure note -Regular diet -Continue Zosyn and Vanco x 1 dose -Will plan to monitor with local wound care and continue antibiotics -Thank you for this consult; We will continue to follow (2) Subcutaneous abscess Code(s): L02.91 - Cutaneous abscess, unspecified Status: Acute - Plan Discussed Condition With: Dr. Gerardo Vargas - Attending Attestation CONSULTATION NOTE FOR SURGICAL ATTENDING, DR. PEE CARRILLO Patient seen Nahid removed from the inferior aspect of the wound to drain the abscess Please see separate procedure note for procedure done in the emergency room to treat this infection Patient felt better after drainage We will continue IV antibiotics I agree with above assessment and plan. The exam, history, and the medical decision-making described in the above note were completed with the assistance of the mid-level provider. I reviewed and agree with the findings presented. I attest that I had a [id number] encounter with the patient on the same day, and personally performed and documented my assessment and findings in the medical record. The following services were provided during this hospital visit: Chart data review, vital sign assessments/reviewing monitor data Review of consultations notes if present. Medication orders/review and/or management Ordering and/or reviewing lab tests Ordering and/or interpreting/reviewing x-rays and/or diagnostic studies Care of the patient and discussion of the patient with the care team Documentation time To help prompt me to consider important information that might be impacting today's encounter and assessment, Information from prior notes written by myself or my colleagues may have been "brought forward/copy and pasted" into today's note.
--- NOTE | 2018-10-23 18:33 | ECHRPT ---
Indication: SYNCOPE CONCLUSIONS The left ventricular systolic function is normal with an estimated ejection fraction in the range of 55-60%. Trace mitral valve regurgitation. There is trace tricuspid valve regurgitation. BP: / HR: Rhythm: Sinus MEASUREMENTS (Male / Female) Normal Values Technical Quality:Fair 2D ECHO LV Diastolic Diameter PLAX 3.7 cm 4.2 - 5.9 / 3.9 - 5.3 cm LV Systolic Diameter PLAX 2.6 cm IVS Diastolic Thickness 1.0 cm 0.6 - 1.0 / 0.6 - 0.9 cm LVPW Diastolic Thickness 1.0 cm 0.6 - 1.0 / 0.6 - 0.9 cm LV Relative Wall Thickness 0.5 LVOT Diameter 1.9 cm LV Ejection Fraction MOD 4C 60.4 % LV Ejection Fraction 4C AL 61.1 % M-MODE Aortic Root Diameter MM 2.0 cm LA Systolic Diameter MM 3.9 cm LA Ao Ratio MM 2.0 AV Cusp Separation MM 1.7 cm DOPPLER AV Peak Velocity 145.0 cm/s AV Peak Gradient 8.4 mmHg AI Peak Velocity 200.0 cm/s AI Peak Gradient 16.0 mmHg AI Pressure Half Time 2948.0 ms LVOT Peak Velocity 87.4 cm/s LVOT Peak Gradient 3.1 mmHg AV Area Cont Eq pk 1.7 cm MV Area PHT 3.9 cm Mitral E Point Velocity 70.6 cm/s Mitral A Point Velocity 70.1 cm/s Mitral E to A Ratio 1.0 LV E' Lateral Velocity 7.0 cm/s Mitral E to LV E' Lateral Ratio 10.1 LV E' Septal Velocity 9.1 cm/s Mitral E to LV E' Septal Ratio 7.8 TR Peak Velocity 209.0 cm/s TR Peak Gradient 17.5 mmHg Right Atrial Pressure 10.0 mmHg Pulmonary Artery Systolic Pressu 27.5 mmHg Right Ventricular Systolic Press 27.5 mmHg PV Peak Velocity 73.3 cm/s PV Peak Gradient 2.1 mmHg FINDINGS LEFT VENTRICLE The left ventricular systolic function is normal with an estimated ejection fraction in the range of 55-60%. Normal left ventricular size. Wall thickness is normal. No regional wall motion abnormalities are present. RIGHT VENTRICLE Normal right ventricular size and systolic function. LEFT ATRIUM The left atrial size is mildly dilated. RIGHT ATRIUM The right atrial size is normal. ATRIAL SEPTUM Normal atrial septal thickness without atrial level shunting by limited color doppler interrogation. AORTA The aortic root and proximal ascending aorta are normal in size on limited imaging. MITRAL VALVE Structurally normal mitral valve. Trace mitral valve regurgitation. No mitral valve stenosis. AORTIC VALVE Trileaflet aortic valve. No aortic valve stenosis or regurgitation. TRICUSPID VALVE Structurally normal tricuspid valve. There is trace tricuspid valve regurgitation. The estimated pulmonary arterial pressure is 27.5 mmHg. PULMONARY VALVE No pulmonary valve regurgitation or stenosis. VESSELS The inferior vena cava is normal in size. PERICARDIUM No pericardial effusion. Carl Guzman DO (Electronically Signed) Final Date:23 October 2018 18:33
[2018-10-23] MEDS ORDERED: Zolpidem Tartrate 5 MG Tablet PO PRN (18:50)
[2018-10-24] MEDS: Piperacil/Tazo 4.5 GM Premix 4.5 GM/100 ML BAG IV.SIG SCH ×2 (05:01→11:46)
--- NOTE | 2018-10-24 06:51 | ECG ---
Date Performed: 10/22/2018 Time Performed: 17:33:58 PTAGE: 68 years EKG: Sinus rhythm NORMAL ECG PREVIOUS TRACING : 10/12/2018 23.54 Since the previous tracing, no significant change noted DOCTOR: Reid Ford Interpretating Date/Time 10/24/2018 06:48:31
[2018-10-24] MEDS: Sod Chloride 0.9% Inj 1,000 ML IV.CONT SCH ×2 (07:13→08:53)
[2018-10-24 08:13] LABS: Baso % (Auto) 0.8 % (0.0-2.0); Eos # (Auto) 0.2 th/mm3 (0.0-0.4); Eos % (Auto) 3.2 % (0.0-4.0); Hematocrit 33.7 % (35.0-46.0); Hemoglobin 11.6 gm/dL (11.6-15.3); Lymph # (Auto) 1.5 th/mm3 (1.0-4.8); Lymph % (Auto) 26.6 % (9.0-44.0); Mean Corpuscular HGB Conc 34.6 % (32.0-36.0); Mean Corpuscular Hemoglobin 32.1 pg (27.0-34.0); Mean Corpuscular Volume 92.9 fL (80.0-100.0); Mean Platelet Volume 7.8 fL (7.0-11.0); Mono # (Auto) 0.5 th/mm3 (0.0-0.9); Mono % (Auto) 9.3 % (0.0-8.0); Neut # (Auto) 3.4 th/mm3 (1.8-7.7); Neut % (Auto) 60.1 % (16.0-70.0); Platelet Count 320 th/mm3 (150-450); Red Blood Count 3.62 mil/mm3 (4.00-5.30); White Blood Count 5.7 th/mm3 (4.0-11.0)
[2018-10-24 08:36] LABS: Albumin 2.6 g/dL (3.4-5.0); Anion Gap 8 meq/L (5-15); Aspartate Aminotransferase 97 U/L (15-37); Blood Urea Nitrogen 9 mg/dL (7-18); Calcium 8.6 mg/dL (8.5-10.1); Carbon Dioxide 27.3 meq/L (21.0-32.0); Chloride 106 meq/L (98-107); Glomerular Filtration Rate 75 mL/min (>89); Glucose,Random 91 mg/dL (74-106); Potassium 3.8 meq/L (3.5-5.1); Sodium 141 meq/L (136-145)
[2018-10-24 08:42] LABS: Alanine Aminotransferase 146 U/L (10-53); Alkaline Phosphatase 210 U/L (45-117); Total Protein 6.4 g/dL (6.4-8.2)
--- NOTE | 2018-10-24 08:43 | P.PN ---
Subjective Interval history: Follow-up for abdominal pain/nausea/vomiting s/p colon resection, syncopal episode. The patient reports continue lower abdominal pain with drainage from surgical site. Denies fevers/chills, nausea/vomiting. No BM since 2 days ago. She is tolerating small amounts of oral intake, requesting soft foods. Denies any lightheadedness or dizziness. Denies any other medical complaints at this time. Physical Exam Vital signs: Vital Signs 10/23/18 09:00 10/23/18 12:19 10/23/18 12:57 Temperature 98.0 F Pulse Rate 56 L 58 L Respiratory Rate 18 16 Blood Pressure 106/52 L Pulse Oximetry 94 L 10/23/18 15:53 10/23/18 19:53 10/23/18 19:58 Temperature 97.9 F 98.4 F Pulse Rate 64 69 Respiratory Rate 16 18 Blood Pressure 108/57 L 91/53 L Pulse Oximetry 95 95 95 10/24/18 00:00 10/24/18 04:00 10/24/18 07:34 Temperature 97.7 F 97.6 F Pulse Rate 59 L 58 L 62 Respiratory Rate 12 18 Blood Pressure 125/61 117/56 L Pulse Oximetry 91 L 95 Intake & Output 10/23/18 10/24/18 10/24/18 18:59 06:59 18:59 Intake Total 4370 / 4370 1200 / 1200 Balance 4370 / 4370 1200 / 1200 Weight 70.3 kg Intake: IV 2450 / 2450 1200 / 1200 NS Inj 1,000 ML @ 100 mls/hr IV 2000 / 2000 1000 / 1000 .CONT .Q10H [facility] Rx#:[id number] Zosyn 4.5 GM Premix 4.5 gm In 200 / 200 200 / 200 100 ml @ 200 mls/hr IV.SIG Q6H [facility] Rx#:[id number] Vancomycin Inj 1,000 MG In NS 250 / 250 Inj 250 ML @ 250 mls/hr IV.SIG ONCE ONE Rx#:[id number] Oral 420 / 420 Other 1500 / 1500 Other: Other Intake Source Saline Solution # Voids 3 1 Date of Last Bowel Movement 10/23/18 10/22/18 Narrative: GENERAL: Well-nourished, well-developed pleasant female patient in [facility]. SKIN: Warm and dry. No rash. HEENT: Normocephalic. Atraumatic. Pupils equal and round. Mucous membranes pink and moist. CARDIOVASCULAR: Regular rate and rhythm. No murmur appreciated. RESPIRATORY: No accessory muscle use. Clear to auscultation. Breath sounds equal bilaterally. GASTROINTESTINAL: Abdomen soft, nondistended. Midline abdominal surgical site with ghislaine above umbilicus, ghislaine removed below umbilicus with some serosanguineous drainage and mild surrounding erythema, tender to palpation. Normoactive bowel sounds x4. MUSCULOSKELETAL: No obvious deformities. Extremities without clubbing, cyanosis , or edema. NEUROLOGICAL: Awake and alert. No obvious cranial nerve deficits. Motor grossly within normal limits. Moving all extremities spontaneously. Normal speech. PSYCHIATRIC: Appropriate mood and affect; insight and judgment normal. Results - Labs CBC & Chem 7: 10/24/18 05:48 10/24/18 05:48 Laboratory Results - last 24 hr 10/23/18 10/24/18 10/24/18 08:35 05:48 05:48 WBC 5.7 RBC 3.62 L Hgb 11.6 Hct 33.7 L MCV 92.9 MCH 32.1 MCHC 34.6 RDW 13.0 Plt Count 320 MPV 7.8 Neut % (Auto) 60.1 Lymph % (Auto) 26.6 [place] % (Auto) 9.3 H Eos % (Auto) 3.2 Baso % (Auto) 0.8 Neut # (Auto) 3.4 Lymph # (Auto) 1.5 [place] # (Auto) 0.5 Eos # (Auto) 0.2 Baso # (Auto) 0.0 WBC Differential . Differential Comment Auto diff final Sodium 141 Potassium 3.8 Chloride 106 Carbon Dioxide 27.3 Anion Gap 8 BUN 9 Creatinine 0.77 Estimated GFR 75 L Random Glucose 91 Calcium 8.6 AST 97 H Troponin I Less than 0.02 L Albumin 2.6 L - Imaging Abdomen/Pelvis CT 10/22/18 17:05 CONCLUSION: 1. Small, nonorganized fluid in the midline anterior abdominal wall at site of recent midline laparotomy without convincing features of abscess at this time. 2. No acute abnormality seen within the abdomen or pelvic cavity. Patient is status post recent right partial colectomy. Head CT 10/22/18 17:05 CONCLUSION: 1. No acute intracranial abnormality demonstrated. 2. Chronic white matter changes. . Assessment and Plan - Assessment (1) Syncope Code(s): R55 - Syncope and collapse Status: Acute (2) Afib Code(s): I48.91 - Unspecified atrial fibrillation Status: Acute (3) Cellulitis Code(s): L03.90 - Cellulitis, unspecified Status: Acute (4) Seroma after procedure Status: Acute - Plan 68-year-old female with a PMH of HTN, A. fib and h/o Volvulus s/p Right Colon Resection who was brought to the ER after syncopal event. Syncope: likely vasovagal while straining on toilet, no chest pain or dizziness reported. -CT Head w/ no acute findings. -Troponins negative x2, EKG without acute ischemic changes -Monitor on telemetry -Echo normal with EF 55-60% -Give IVF hydration -Symptoms improved, no further episodes Post-Op Seroma: h/o Volvulus s/p Right Colon Resection 10/13/[address] Carrillo -CT Abd/Pelvis w/ fluid collection at surgical site, no clear abscess identified -Dr. Mendoza consulted by ER physician, findings possibly related to seroma -Seen by Dr. Carrillo, s/p bedside drainage and removal of some ghislaine -Continue IV Morphine prn. -Further disposition per surgery Cellulitis: Abdominal wall cellulitis, afebrile, mild leukocytosis -s/p Zosyn in ER, will continue w/ IV Abx. A-fib: Chronic, controlled. -Resume home Cardizem and Flecainide. -Monitor on telemetry DVT Prophylaxis: SCD/Teds. Discharge Planninhrs: Patient has been seen by general surgery and cleared for discharge, provided prescriptions for Bactrim and [place]. Patient wants to go home. Discharge patient to home with [facility] Condition on discharge: Stable Regular Diet as tolerated [place] activity Rx written: Bactrim/[place] provided by general surgery, Ambien 5mg po hs prn insomnia #3tabs Follow-up with primary care physician and general surgery Dr. Carrillo as scheduled [employer] Prescription Drug Monitoring Database has been queried and verified prior to prescribing the controlled subsection.
[2018-10-24] MEDS: Morphine Sulfate Inj 2 MG/ML Vial IV.PUSH PRN ×2 (08:48→13:04)
[2018-10-24] MEDS: dilTIAZem CD 180 MG Capsule PO SCH (08:51)
[2018-10-24] MEDS ORDERED: Senna/Docusate Sodium 8.6/50 MG Tablet PO SCH (09:00)
[2018-10-24 11:45] VITALS: RESP 20
[2018-10-24] MEDS: Flecainide 100 MG Tablet PO SCH (11:46)
--- NOTE | 2018-10-24 13:13 | P.PCN ---
Date of procedure: 10/23/18 Pre-op diagnosis: Subcutaneous skin abscess Post-op diagnosis: same Procedure: Incision and drainage subcutaneous to stitch abscess Patient was in the emergency room She has erythema tenderness swelling at her midline incision CT scan shows subcutaneous fluid collection 5 ghislaine are removed from the inferior aspect of the wound with gentle pressure about 100 cc of purulent material returns. This gives her immediate symptomatic relief of her abdominal discomfort sterile bandages were applied to the wound to encourage further drainage. She will remain in the hospital and IV antibiotics Sterile dressings applied Anesthesia: none Surgeon: Pee Carrillo Pathology: none sent Condition: stable Disposition: no change
--- NOTE | 2018-10-24 13:16 | P.DCO ---
- Diagnosis (1) Cellulitis Status: Acute - Home Health Nursing Order: Wound care and dressing changes Instructions: Midline lower area of incision---- 1/4 inch Iodoform packing into wound--- change daily and PRN. Cover with ABD pad. Okay to shower ---remove packing first. - Case Management Consult Case Management Consult-Home Health: Yes - Certification I have seen patient Nettie Vargas on 10/24/18. My clinical findings support the need for the requested home health care services because: Patient has SOB, Need for psychosocial assistance I certify that my clinical findings support that this patient is homebound because: Post-op weakness
--- NOTE | 2018-10-24 13:23 | P.PNGS ---
Subjective Interval history: DAILY PROGRESS NOTE FOR SURGICAL ATTENDING, DR. THERESA CARRILLO Doing well Resting in bed No issues overnight Physical Exam Vital signs: Vital Signs 10/23/18 15:53 10/23/18 19:53 10/23/18 19:58 Temperature 97.9 F 98.4 F Pulse Rate 64 69 Respiratory Rate 16 18 Blood Pressure 108/57 L 91/53 L Pulse Oximetry 95 95 95 10/24/18 00:00 10/24/18 04:00 10/24/18 07:34 Temperature 97.7 F 97.6 F Pulse Rate 59 L 58 L 62 Respiratory Rate 12 18 Blood Pressure 125/61 117/56 L Pulse Oximetry 91 L 95 10/24/18 08:15 10/24/18 11:43 Temperature Pulse Rate 71 60 Respiratory Rate 20 Blood Pressure 140/64 Pulse Oximetry 98 Intake & Output 10/23/18 10/24/18 10/24/18 18:59 06:59 18:59 Intake Total 4370 / 4370 1200 / 1200 1100 / 1100 Balance 4370 / 4370 1200 / 1200 1100 / 1100 Weight 70.3 kg Intake: IV 2450 / 2450 1200 / 1200 1100 / 1100 NS Inj 1,000 ML @ 100 mls/hr IV 2000 / 2000 1000 / 1000 1000 / 1000 .CONT .Q10H [facility] Rx#:[id number] Zosyn 4.5 GM Premix 4.5 gm In 200 / 200 200 / 200 100 / 100 100 ml @ 200 mls/hr IV.SIG Q6H [facility] Rx#:[id number] Vancomycin Inj 1,000 MG In NS 250 / 250 Inj 250 ML @ 250 mls/hr IV.SIG ONCE ONE Rx#:[id number] Oral 420 / 420 Other 1500 / 1500 Other: Other Intake Source Saline Solution # Voids 3 1 Date of Last Bowel Movement 10/23/18 10/22/18 10/24/18 Narrative: ALert and awake Abd: several more ghislaine removed from midline incision---- manually expressed about 10 cc thick purulent drainage ---- cleaned and flushes area with 10 cc sterile normal saline---- place 2x2 packing into wound---covered with ABD--- surrounding area with less erythema Results - Labs 10/24/18 05:48 10/24/18 05:48 Laboratory Results - last 24 hr 10/24/18 10/24/18 05:48 05:48 WBC 5.7 RBC 3.62 L Hgb 11.6 Hct 33.7 L MCV 92.9 MCH 32.1 MCHC 34.6 RDW 13.0 Plt Count 320 MPV 7.8 Neut % (Auto) 60.1 Lymph % (Auto) 26.6 [place] % (Auto) 9.3 H Eos % (Auto) 3.2 Baso % (Auto) 0.8 Neut # (Auto) 3.4 Lymph # (Auto) 1.5 [place] # (Auto) 0.5 Eos # (Auto) 0.2 Baso # (Auto) 0.0 WBC Differential . Differential Comment Auto diff final Sodium 141 Potassium 3.8 Chloride 106 Carbon Dioxide 27.3 Anion Gap 8 BUN 9 Creatinine 0.77 Estimated GFR 75 L Random Glucose 91 Calcium 8.6 Total Bilirubin 0.4 AST 97 H ALT 146 H Alkaline Phosphatase 210 H Total Protein 6.4 Albumin 2.6 L - Imaging Imaging: ITS Impressions Abdomen/Pelvis CT 10/22/18 17:05 CONCLUSION: 1. Small, nonorganized fluid in the midline anterior abdominal wall at site of recent midline laparotomy without convincing features of abscess at this time. 2. No acute abnormality seen within the abdomen or pelvic cavity. Patient is status post recent right partial colectomy. Head CT 10/22/18 17:05 CONCLUSION: 1. No acute intracranial abnormality demonstrated. 2. Chronic white matter changes. . Assessment and Plan - Assessment (1) Cellulitis Code(s): L03.90 - Cellulitis, unspecified Status: Acute Plan: 68 year old female s/p right colon resection about 10 days ago; back with cellulitis and subcutaneous abscess -Opened area more and drainage -Placed packing into wound -Regular diet -Okay to DC from GS standpoint -Bactrim rx on chart -CM for [facility] for wound care -Follow up with Dr. Carrillo at 9AM - Attending Attestation NOTE FOR SURGICAL ATTENDING, DR. THERESA CARRILLO Patient feels a lot better Tolerating diet Would like to go home We will make arrangements for p.o. antibiotics and discharge and wound care I will see her back in the office on I agree with above assessment and plan. The exam, history, and the medical decision-making described in the above note were completed with the assistance of the mid-level provider. I reviewed and agree with the findings presented. I attest that I had a [id number] encounter with the patient on the same day, and personally performed and documented my assessment and findings in the medical record. The following services were provided during this hospital visit: Chart data review, vital sign assessments/reviewing monitor data Review of consultations notes if present. Medication orders/review and/or management Ordering and/or reviewing lab tests Ordering and/or interpreting/reviewing x-rays and/or diagnostic studies Care of the patient and discussion of the patient with the care team Documentation time To help prompt me to consider important information that might be impacting today's encounter and assessment, Information from prior notes written by myself or my colleagues may have been "brought forward/copy and pasted" into today's note.
[2018-10-24 16:38] VITALS: BP 126/59; PULSE 55; TEMP 98.3; O2SAT 95
== END 2018-10-24 17:37 | disposition home or self-care (01) ==
LOC: NEPE 16:53 → INTOOBSV 18:56 → OBSVTOIN 18:56 → NEDA 18:56 → NEPFCDU 10-23 00:38
PROVIDERS: ADMIT Hospitalist; ATTEND Hospitalist